=== PATIENT | male | born 1950 | race Caucasian/White ===

== ENCOUNTER 2016-04-17 16:32 | Emergency (ER) | payer OTHER ==
[~2016-04-17] VITALS: Ht 170.2 cm; Wt 72.6 kg
[2016-04-17 16:40] VITALS: BP 138/78
[2016-04-17] MEDS ORDERED: KETOROLAC TROMETHAMINE INJ 30 MG/ML VIAL ONE (17:17)
[2016-04-17] MEDS ORDERED: KETOROLAC TROMETHAMINE INJ 60 MG/2 ML VIAL IM ONE (17:30)
== END 2016-04-17 18:58 | disposition home or self-care (01) ==
LOC: ER 16:34
DX: J04.0 Acute laryngitis (principal); I10 Essential (primary) hypertension; G89.29 Other chronic pain; M54.5 Low back pain; Z59.0 Homelessness
CPT/HCPCS: 99283; A4606; Z7610; J1885

== ENCOUNTER 2016-04-18 00:24 | Emergency (ER) | payer OTHER ==
[~2016-04-18] VITALS: Ht 170.2 cm; Wt 72.6 kg
[2016-04-18 00:30] VITALS: BP 132/75
[2016-04-18] MEDS ORDERED: LORAZEPAM 1 MG TABLET PO ONE (01:00)
[2016-04-18] MEDS ORDERED: HYDROCODONE/APAP 10/325MG 1 EA TABLET PO ONE (01:00)
[2016-04-18] MEDS ORDERED: HYDROCODONE/APAP 5/325MG 1 EACH TABLET ONE (01:09)
[2016-04-18] MEDS ORDERED: LORAZEPAM 1 MG TABLET ONE (01:09)
== END 2016-04-18 01:36 | disposition home or self-care (01) ==
LOC: ER 00:27
DX: F41.9 Anxiety disorder, unspecified (principal); F15.10 Other stimulant abuse, uncomplicated; G89.4 Chronic pain syndrome; M54.5 Low back pain; I25.2 Old myocardial infarction; I10 Essential (primary) hypertension; Z59.0 Homelessness; Z88.8 Allergy status to other drugs, medicaments and biological substances
CPT/HCPCS: 99284; A4606; Z7610

== ENCOUNTER 2016-05-09 10:34 | Emergency (ER) | payer OTHER ==
[~2016-05-09] VITALS: Ht 167.6 cm; Wt 68.0 kg
[2016-05-09 10:42] VITALS: BP 138/109
[2016-05-09] MEDS ORDERED: LORAZEPAM 1 MG TABLET ONE (11:20)
[2016-05-09] MEDS ORDERED: LORAZEPAM 1 MG TABLET PO ONE (11:30)
== END 2016-05-09 12:37 | disposition home or self-care (01) ==
LOC: ER 10:36
DX: F15.10 Other stimulant abuse, uncomplicated (principal); F19.939 Other psychoactive substance use, unspecified with withdrawal, unspecified; I10 Essential (primary) hypertension; F41.9 Anxiety disorder, unspecified; M54.30 Sciatica, unspecified side; F10.10 Alcohol abuse, uncomplicated; B19.20 Unspecified viral hepatitis C without hepatic coma; Z88.8 Allergy status to other drugs, medicaments and biological substances
CPT/HCPCS: A4606; Z7610

== ENCOUNTER 2016-05-10 11:07 | Emergency (ER) | payer OTHER ==
[~2016-05-10] VITALS: Ht 170.2 cm; Wt 68.0 kg
[2016-05-10 11:46] VITALS: BP 156/98
== END 2016-05-10 12:09 | disposition home or self-care (01) ==
LOC: ER 11:16
DX: F41.9 Anxiety disorder, unspecified (principal); Z76.5 Malingerer [conscious simulation]; I10 Essential (primary) hypertension; B19.20 Unspecified viral hepatitis C without hepatic coma; Z88.8 Allergy status to other drugs, medicaments and biological substances; Z88.5 Allergy status to narcotic agent
CPT/HCPCS: 99281; A4606; Z7610; Z7502

== ENCOUNTER 2016-05-16 05:55 | Emergency (ER) | payer OTHER ==
[~2016-05-16] VITALS: Ht 162.6 cm; Wt 63.5 kg
[2016-05-16 06:25] VITALS: BP 138/79
[2016-05-16] MEDS ORDERED: ACETAMINOPHEN 325 MG TABLET ONE (06:40)
[2016-05-16] MEDS: ACETAMINOPHEN 325 MG TABLET PO ONE (06:46)
== END 2016-05-16 06:48 | disposition home or self-care (01) ==
LOC: ER 05:55
DX: G89.29 Other chronic pain (principal); F19.10 Other psychoactive substance abuse, uncomplicated; Z76.5 Malingerer [conscious simulation]; I10 Essential (primary) hypertension; Z88.8 Allergy status to other drugs, medicaments and biological substances; F10.20 Alcohol dependence, uncomplicated
CPT/HCPCS: 99281; A4606; Z7610; Z7502

== ENCOUNTER 2016-07-11 20:17 | Emergency (ER) | payer OTHER ==
[~2016-07-11] VITALS: Ht 170.2 cm; Wt 72.6 kg
[2016-07-11 20:41] VITALS: BP 137/81
== END 2016-07-11 22:39 | disposition left against medical advice (07) ==
LOC: ER 20:24
DX: Z53.21 Procedure and treatment not carried out due to patient leaving prior to being seen by health care provider (principal)
CPT/HCPCS: A4606; Z7610

== ENCOUNTER 2016-07-20 22:40 | Emergency (ER) | payer OTHER ==
[~2016-07-20] VITALS: Ht 170.2 cm; Wt 63.5 kg
--- NOTE | 2016-07-20 22:47 | NUR ---
PT BIBRA TO ER BED 14. APPEARS ANXIOUS, C/O SOB. PT HYPERVERBAL. STATES TOOK METH 5 DAYS AGO. GOWNED AND PLACED ON MONITOR SHOWING STABLE VITALS. AWAITING MD BELL.
--- NOTE | 2016-07-20 22:49 | NUR ---
DR MYLES AT BEDSIDE FOR EVAL.
--- NOTE | 2016-07-20 23:10 | NUR ---
REPORT TO CHARGE NURSE TRACY FOR EMERITA.
[2016-07-20 23:59] VITALS: BP 143/63
--- NOTE | 2016-07-21 00:01 | NUR ---
Patient discharged to home in stable condition. Written and verbal after care instructions given. Patient REFUSED TO SIGN ALL ACI AND REFUSED TO TAKE THE ACI PAPERWORK.
== END 2016-07-20 23:55 | disposition home or self-care (01) ==
LOC: ER 22:41
DX: F41.9 Anxiety disorder, unspecified (principal); I10 Essential (primary) hypertension; Z88.5 Allergy status to narcotic agent; Z88.8 Allergy status to other drugs, medicaments and biological substances; F10.20 Alcohol dependence, uncomplicated
CPT/HCPCS: 93005; 99284; A4606; Z7610

== ENCOUNTER 2016-08-17 21:31 | Emergency (ER) | payer OTHER ==
[~2016-08-17] VITALS: Ht 170.2 cm; Wt 65.8 kg
--- NOTE | 2016-08-17 22:50 | NUR ---
PT TO ER BED 11. C/O WIDRAWL FROM METH AND ALCOHOL. STATES LAST DRINK WAS THIS MORNING. STATES LAST TOOK METH 3 DAYS AGO. PT APPEARS ANXIOUS. AWAITING MD BELL.
--- NOTE | 2016-08-17 23:08 | NUR ---
DR FRANCIS AT BEDSIDE FOR EVAL.
--- NOTE | 2016-08-17 23:39 | NUR ---
Patient discharged to home in stable condition. Written and verbal after care instructions given. Patient verbalizes understanding of instruction.
[2016-08-17 23:40] VITALS: BP 124/66
== END 2016-08-17 23:41 | disposition home or self-care (01) ==
LOC: ER 21:39
DX: F19.10 Other psychoactive substance abuse, uncomplicated (principal); F41.9 Anxiety disorder, unspecified; I10 Essential (primary) hypertension; B19.20 Unspecified viral hepatitis C without hepatic coma; M54.30 Sciatica, unspecified side; Z88.8 Allergy status to other drugs, medicaments and biological substances
CPT/HCPCS: A4606; Z7610

== ENCOUNTER 2019-05-08 08:56 | Inpatient (IN) | payer MEDICARE, OTHER ==
[~2019-05-08] VITALS: Ht 167.6 cm; Wt 78.9 kg
--- NOTE | 2019-05-08 09:08 | NUR ---
CATHLEEN RA860 "took Meth now feeling heart fast", TO ER BED 11, HOOKED TO SALES TEAM MEMBER, CHANGED TO HOSP GOWN, PROVIDED W WARM BLANKET, AWAITING MD BELL
--- NOTE | 2019-05-08 09:55 | NUR ---
DR SALCIDO AT BEDSIDE
[2019-05-08] MEDS ORDERED: LORAZEPAM INJ 2 MG/ML VIAL IV ONE ×3 (10:00→18:00)
[2019-05-08] MEDS ORDERED: LORAZEPAM INJ 2 MG/ML VIAL ONE ×2 (10:03→12:07)
[2019-05-08 10:24] LABS: BASOPHILS # (AUTO) 0.1 /CMM (0.0-0.2); BASOPHILS % (AUTO) 0.6 % (0.0-2.0); EOSINOPHILS % (AUTO) 0.3 % (0.0-6.0); HEMATOCRIT 47 % (39-51); HEMOGLOBIN 16.1 g/dL (13.5-17.5); LYMPHOCYTES # (AUTO) 1.9 /CMM (0.8-4.8); LYMPHOCYTES % (AUTO) 14.4 % (20.0-44.0); MEAN CORPUSCULAR HGB CONC 34 g/dl (31.0-36.0); MEAN CORPUSCULAR VOLUME 96 fL (80-96); MONOCYTES # (AUTO) 1.5 /CMM (0.1-1.30); MONOCYTES % (AUTO) 11.6 % (2.0-12.0); NEUTROPHILS # (AUTO) 9.4 /CMM (1.8-8.9); NEUTROPHILS % (AUTO) 73.1 % (43.0-81.0); PLATELET COUNT (AUTO) 362 /CMM (150-450); RED BLOOD CELL COUNT(AUTO) 4.93 MIL/uL (4.5-6.0); WHITE BLOOD COUNT (AUTO) 12.9 K/uL (4.3-11.0)
[2019-05-08 10:36] LABS: CALCIUM, SERUM 9.6 mg/dL (8.5-10.1); CREATININE 0.8 mg/dL (0.6-1.3)
[2019-05-08 10:42] LABS: ALBUMIN 4.3 g/dL (3.4-5.0); BILIRUBIN,DIRECT 0.1 mg/dL (0.0-0.2); BILIRUBIN,TOTAL 0.7 mg/dL (0.2-1.0); TOTAL PROTEIN, SERUM 8.3 g/dL (6.4-8.2)
[2019-05-08] MEDS ORDERED: ASPIRIN 325 MG TABLET PO ONE (11:00)
[2019-05-08] MEDS ORDERED: ASPIRIN 325 MG TABLET ONE (11:17)
[2019-05-08] MEDS ORDERED: GABA-536 PO (11:21)
[2019-05-08] MEDS ORDERED: AMIT50TA17 PO (11:21)
[2019-05-08] MEDS ORDERED: LISI-603 PO (11:21)
--- NOTE | 2019-05-08 11:26 | NUR ---
RESTING COMFORTABLY. VSS.
--- NOTE | 2019-05-08 11:46 | NUR ---
PT DENIES ANY CP, SOB, AND PAIN. VSS. WATCHING TV.
--- NOTE | 2019-05-08 12:08 | NUR ---
DALLIN JUAN, WAITING FOR CALL BACK.
--- NOTE | 2019-05-08 12:09 | NUR ---
NURSING SUP NOTIFIED FOR BED.
--- NOTE | 2019-05-08 12:22 | NUR ---
MD JOSE RAMON TURNER.
--- NOTE | 2019-05-08 12:30 | NUR ---
REPORT GIVEN TO JULIETH LOPEZ
--- NOTE | 2019-05-08 13:01 | NUR ---
PT TRANSFERED PER ACLS PROTOCOL
[2019-05-08] MEDS ORDERED: MAGNESIUM HYDROXIDE 30 ML UDC PO PRN (15:00)
[2019-05-08] MEDS ORDERED: HYDROCODONE/APAP 5/325MG 1 EACH TABLET PO PRN (15:00)
[2019-05-08] MEDS ORDERED: ACETAMINOPHEN 325 MG TABLET PO PRN (15:00)
[2019-05-08] MEDS ORDERED: ZOLPIDEM TARTRATE 5 MG TABLET PO PRN (15:00)
[2019-05-08] MEDS ORDERED: ONDANSETRON HCL/PF 4 MG/2 ML VIAL IVP PRN (15:00)
[2019-05-08 16:00] VITALS: BP 125/82
[2019-05-08] MEDS ORDERED: ENOXAPARIN SODIUM 40 MG/0.4 ML DISP.SYRIN SQ SCH (17:00)
--- NOTE | 2019-05-08 17:51 | NUR ---
TELE/RN NOTE THE PATIENT VERBALIZED BEING ANXIOUS. MICHAEL CAMILO IS MADE AWARE AND NEW ORDER OF ATIVAN 1 MG IV PUSH ONCE PRN IS RECEIVED. THE ORDER IS READ BACK, VERIFIED. NOTED AND CARRIED OUT.
[2019-05-08] MEDS ORDERED: LORAZEPAM 1 MG TABLET PO PRN (18:00)
--- NOTE | 2019-05-08 18:31 | NUR ---
TELE/RN NOTE THE PATIENT IS ALERT AND ORIENTED X4. IN ROOM AIR AND SATURATION IS AT 97%. DENIES SOB. RESPIRATION REGULAR AND UNLABORED. DENIES PAIN. THE PATIENT IS IN NO APPARENT DISTRESS. RIGHT HAND G 22 PATENT AND SALINE LOCKED. EXTERNAL TELE BOX READING IS SINUS TACHYCARDIA 114. BED LOW AND LOCKED. SIDE RAILS UP X33. CALL LIGHT WITHIN REACH. WILL ENDORSE TO INGOT SUPERVISOR.
--- NOTE | 2019-05-08 19:20 | NUR ---
RECEIVED PATIENT IN BED, AWAKE, A/O X4. NO COMPLAIN OF PAIN. NOT IN RESPIRATORY DISTRESS. WENT TO THE BATHROOM, STEADY GAIT. REMINDED OF URINE COLLECTION. CONTAINER GIVEN. UNABLE TO COLLECT IT.
[2019-05-08 20:00] VITALS: BP 130/87
[2019-05-08] MEDS ORDERED: ATORVASTATIN 10 MG TABLET PO SCH (22:00)
[2019-05-08 23:41] VITALS: BP 138/83
[2019-05-08] MEDS: METOPROLOL TARTRATE 50 MG TABLET PO SCH (23:42)
[2019-05-09] VITALS: BP 138/83
--- NOTE | 2019-05-09 01:08 | NUR ---
PATIENT REMOVED THE TELE MONITOR AND HIS IV. REFUSED TO BE CONNECTED TO THE MONITOR. REMOVED ALSO HIS CLOTHINGS.
[2019-05-09 04:00] VITALS: BP 130/74
[2019-05-09 04:44] VITALS: BP 130/74
[2019-05-09] MEDS: METOPROLOL TARTRATE 50 MG TABLET PO SCH (04:53)
--- NOTE | 2019-05-09 06:35 | NUR ---
PATIENT REMOVED THE TELE MONITOR LEADS AGAIN.
--- NOTE | 2019-05-09 06:37 | NUR ---
INSTRUCTED NPO RIGHT NOW,VERBALIZED UNDERSTANDING.
--- NOTE | 2019-05-09 07:48 | NUR ---
BROOMMAKER OPENING NOTES PATIENT IN BED RESTING COMFORTABLY. PATIENT IN NO ACUTE DISTRESS. NO SOB NOTED. PATIENT BREATHING IS EVEN AND UNLABORED. PATIENT WITH REMOVED IV ACCESS. NO ACCESS AT THIS TIME. PATIENT NONCOMPLIANT WITH CARDIAC MONITORING. PATIENT BED IS LOCKED AND IN LOWEST POSITION. CALL LIGHT WITHIN REACH. WILL CONTINUE TO MONITOR.
[2019-05-09 07:51] LABS: BASOPHILS # (AUTO) 0.1 /CMM (0.0-0.2); BASOPHILS % (AUTO) 0.5 % (0.0-2.0); EOSINOPHILS % (AUTO) 0.7 % (0.0-6.0); HEMATOCRIT 51 % (39-51); HEMOGLOBIN 17.2 g/dL (13.5-17.5); LYMPHOCYTES # (AUTO) 2.2 /CMM (0.8-4.8); LYMPHOCYTES % (AUTO) 15.7 % (20.0-44.0); MEAN CORPUSCULAR HGB CONC 34 g/dl (31.0-36.0); MEAN CORPUSCULAR VOLUME 96 fL (80-96); MONOCYTES # (AUTO) 1.4 /CMM (0.1-1.30); MONOCYTES % (AUTO) 10.3 % (2.0-12.0); NEUTROPHILS # (AUTO) 10.2 /CMM (1.8-8.9); NEUTROPHILS % (AUTO) 72.8 % (43.0-81.0); PLATELET COUNT (AUTO) 402 /CMM (150-450); RED BLOOD CELL COUNT(AUTO) 5.34 MIL/uL (4.5-6.0)
[2019-05-09 07:53] LABS: CALCIUM, SERUM 9.9 mg/dL (8.5-10.1); CREATININE 1.1 mg/dL (0.6-1.3); MAGNESIUM 2.3 mg/dL (1.8-2.4); PHOSPHORUS 3.2 mg/dL (2.5-4.9); POTASSIUM 4.1 mmol/L (3.5-5.1)
[2019-05-09 08:00] VITALS: BP 129/81
--- NOTE | 2019-05-09 08:59 | NUR ---
DIRT BIKE RACER NOTE PATIENT SIGNED CTA CONSENT. THEN REFUSED TO HAVE CTA PERFORMED. DR. CALDERON MADE AWARE.
[2019-05-09] MEDS ORDERED: ASPIRIN 81 MG TAB.CHEW PO SCH (09:00)
--- NOTE | 2019-05-09 09:00 | NUR ---
DRAWER IN JACQUARD LOOM AMA NOTE PATIENT REFUSING TO STAY FOR CTA OF HEART. PATIENT STATES " I CAN NOT WAIT ANYMORE, I WANT TO LEAVE THIS HOSPITAL NOW." PATIENT IS EDUCATED RISKS AND BENEFITS OF CTA AND IMPORTANCE OF STAYING 3X. PATIENT GOT AGITATED AND REFUSED. DR. CALDERON MADE AWARE AND SPOKE WITH PATIENT. PATIENT CONTINUES TO REFUSE AND WANTS TO LEAVE HOSPITAL AMA. BASIL CAMILO MADE AWARE AND EDUCATED PATIENT OF IMPORTANCE TO STAY FOR HOSPITALIZATION WELL. PATIENT CONTINUED TO REFUSE. PATIENT REFUSED DC PAPERWORK. PATIENT HAS NO IV. ID BAND REMOVED. PATIENT REFUSED TO HAVE SKIN ASSESSMENT. PATIENT SIGNED AMA SHEET AND BELONGINGS LIST. PATIENT ACKNOWLEDGES AND HAS BELONGINGS WITH HIM. PATIENT IN NO ACUTE DISTRESS. NO SOB NOTED. PATIENT BREATHING IS EVEN AND UNLABORED. CHARGE NURSE MADE AWARE, BASIL TOMAS, AND DR. CALDERON MADE AWARE.
== END 2019-05-09 09:00 | disposition left against medical advice (07) | DRG 282 ==
LOC: ER 09:03 → TELE 12:37
PROVIDERS: ADMIT Nurse Practitioner Acute Care; ATTEND Nurse Practitioner Acute Care
DX: I21.A1 Myocardial infarction type 2 (principal); F15.10 Other stimulant abuse, uncomplicated; F41.9 Anxiety disorder, unspecified; D72.829 Elevated white blood cell count, unspecified; I10 Essential (primary) hypertension; Z59.0 Homelessness
CPT/HCPCS: 36415; 71045-TC; 80048-TC; 80061-TC; 80076-TC; 83735-TC; 84100-TC; 84484-TC; 85025-TC; 87081-TC; 93307-TC; G0378; J1650; J2060

== ENCOUNTER 2019-05-10 08:12 | Emergency (ER) | payer MEDICARE, OTHER ==
[~2019-05-10] VITALS: Ht 167.6 cm; Wt 63.5 kg
[~2019-05-10 08:12] MED LIST: AMIT50TA17 PO; GABA-536 PO; LISI-603 PO
[2019-05-10] MEDS ORDERED: LORAZEPAM 1 MG TABLET PO ONE (09:00)
[2019-05-10] MEDS ORDERED: LORAZEPAM 1 MG TABLET ONE (09:01)
--- NOTE | 2019-05-10 09:07 | NUR ---
patient came in to the ER c/o anxious, had meth yesterday, denies SI/HI. On room air, breathing evenly and unlabored, kept comfortable,will continue to monitor accordingly.
--- NOTE | 2019-05-10 09:42 | NUR ---
Provided with food tray. Tolerated PO well.
--- NOTE | 2019-05-10 10:36 | NUR ---
Patient given written and verbal discharge instructions. Patient verbalizes understanding of instructions. Patient is ambulatory with steady gait. Refuses offer of nursing home placement. Patient given list of available shelters in surrounding area. Provided w pants. Name band removed. all belongings returned to patient.
[2019-05-10 11:00] VITALS: BP 110/77
== END 2019-05-10 11:00 | disposition home or self-care (01) ==
LOC: ER 08:16
DX: F41.9 Anxiety disorder, unspecified (principal); F19.10 Other psychoactive substance abuse, uncomplicated; I10 Essential (primary) hypertension; F10.10 Alcohol abuse, uncomplicated; Y90.9 Presence of alcohol in blood, level not specified; Z86.19 Personal history of other infectious and parasitic diseases; Z79.899 Other long term (current) drug therapy; Z88.8 Allergy status to other drugs, medicaments and biological substances; Z88.6 Allergy status to analgesic agent; Z59.0 Homelessness

== ENCOUNTER 2019-05-12 11:06 | Emergency (ER) | payer MEDICARE, OTHER ==
[~2019-05-12] VITALS: Ht 167.6 cm; Wt 72.1 kg
[2019-05-12] MEDS ORDERED: ONDANSETRON HCL/PF 4 MG/2 ML VIAL ONE (11:41)
[2019-05-12] MEDS ORDERED: LORAZEPAM INJ 2 MG/ML VIAL ONE (11:42)
[2019-05-12 11:52] LABS: BASOPHILS % (AUTO) 0.4 % (0.0-2.0); EOSINOPHILS % (AUTO) 1.4 % (0.0-6.0); HEMATOCRIT 42 % (39-51); HEMOGLOBIN 14.4 g/dL (13.5-17.5); LYMPHOCYTES # (AUTO) 2.1 /CMM (0.8-4.8); LYMPHOCYTES % (AUTO) 18.6 % (20.0-44.0); MEAN CORPUSCULAR HGB CONC 34 g/dl (31.0-36.0); MEAN CORPUSCULAR VOLUME 95 fL (80-96); MONOCYTES # (AUTO) 1.4 /CMM (0.1-1.30); MONOCYTES % (AUTO) 12.7 % (2.0-12.0); NEUTROPHILS # (AUTO) 7.4 /CMM (1.8-8.9); NEUTROPHILS % (AUTO) 66.9 % (43.0-81.0); PLATELET COUNT (AUTO) 382 /CMM (150-450); WHITE BLOOD COUNT (AUTO) 11.1 K/uL (4.3-11.0)
--- NOTE | 2019-05-12 11:53 | NUR ---
patient came in to the er c/o chest pressure, sob since this morning. admits to ingesting "crystal meth" meth last night. On room air, breathing evenly and unlabored. connected to the monitor and pulse ox. kept comfortable, will continue to monitor accordingly.
[2019-05-12 12:00] LABS: CALCIUM, SERUM 9.4 mg/dL (8.5-10.1); CARBON DIOXIDE 23 mmol/L (21-32); CHLORIDE 100 mmol/L (98-107); CREATININE 0.9 mg/dL (0.6-1.3); GLUCOSE 107 mg/dL (74-106); POTASSIUM 3.6 mmol/L (3.5-5.1); SODIUM SERUM 136 mmol/L (136-145); UREA NITROGEN, BLOOD 26 mg/dL (7-18)
[2019-05-12] MEDS ORDERED: LORAZEPAM INJ 2 MG/ML VIAL IV ONE (12:00)
[2019-05-12] MEDS ORDERED: IV NS 0.9% 1,000 ML BAG IV ONE (12:00)
[2019-05-12] MEDS ORDERED: ONDANSETRON HCL/PF 4 MG/2 ML VIAL IVP ONE (12:00)
[2019-05-12 14:43] VITALS: BP 128/81
--- NOTE | 2019-05-12 14:43 | NUR ---
Patient given written and verbal discharge instructions. Patient verbalizes understanding of instructions. Patient is ambulatory with steady gait. Refuses offer of detention placement. Patient given list of available shelters in surrounding area. food and tap card provided.
== END 2019-05-12 14:43 | disposition home or self-care (01) ==
LOC: ER 11:06
DX: F15.129 Other stimulant abuse with intoxication, unspecified (principal); F15.10 Other stimulant abuse, uncomplicated; E86.0 Dehydration; I10 Essential (primary) hypertension; F41.9 Anxiety disorder, unspecified; Z88.8 Allergy status to other drugs, medicaments and biological substances; Z79.899 Other long term (current) drug therapy
CPT/HCPCS: 36415; 80048; 84484; 85025; 93005 ×3; 96361; 96374; 96375; 99284; J2060; J2405; J7030

== ENCOUNTER 2020-08-24 17:31 | Emergency (ER) | payer MEDICARE, MEDICAID ==
[~2020-08-24] VITALS: Ht 170.2 cm; Wt 75.7 kg
[~2020-08-24 17:31] MED LIST changes: -LISI-603 PO; +LISI20TA30 PO
--- NOTE | 2020-08-24 17:48 | NUR ---
pt ambulatory to er bed 14 c/o diffuse abdominal pain that started at noon today. denies n/v/d pt admits to meth use earlier this morning. but denies etoh. pt denies si/hi. hypertensive social services aide. awaiting md carlin.
--- NOTE | 2020-08-24 17:50 | NUR ---
The patient is bib for c/o diffuse abdominal pain x today. denies n/v/d. admits to meth use this am. Rates pain 09/22. Denies SOB. Respiration regular and unlabored. Will continue to monitor the patient.
--- NOTE | 2020-08-24 17:58 | NUR ---
dr sethi at bedside for eval.
[2020-08-24 18:18] LABS: BASOPHILS # (AUTO) 0.1 /CMM (0.0-0.2); BASOPHILS % (AUTO) 0.6 % (0.0-2.0); EOSINOPHILS % (AUTO) 0.4 % (0.0-6.0); HEMATOCRIT 44 % (39-51); HEMOGLOBIN 14.8 g/dL (13.5-17.5); LYMPHOCYTES # (AUTO) 2.1 /CMM (0.8-4.8); LYMPHOCYTES % (AUTO) 19.3 % (20.0-44.0); MEAN CORPUSCULAR HGB CONC 34 g/dl (31.0-36.0); MEAN CORPUSCULAR VOLUME 99 fL (80-96); MONOCYTES # (AUTO) 1.2 /CMM (0.1-1.30); NEUTROPHILS # (AUTO) 7.5 /CMM (1.8-8.9); NEUTROPHILS % (AUTO) 68.7 % (43.0-81.0); PLATELET COUNT (AUTO) 331 /CMM (150-450); RED BLOOD CELL COUNT(AUTO) 4.42 MIL/uL (4.5-6.0); WHITE BLOOD COUNT (AUTO) 10.9 K/uL (4.3-11.0)
[2020-08-24] MEDS ORDERED: LORAZEPAM 1 MG TABLET ONE (18:23)
[2020-08-24 18:26] LABS: CALCIUM, SERUM 9.6 mg/dL (8.5-10.1); CREATININE 0.9 mg/dL (0.6-1.3)
[2020-08-24 18:27] LABS: ALCOHOL, BLOOD < 3 mg/dL (0-0); MAGNESIUM 2.2 mg/dL (1.8-2.4)
[2020-08-24] MEDS ORDERED: LORAZEPAM 1 MG TABLET PO ONE (18:30)
[2020-08-24 18:32] LABS: ALBUMIN 4.4 g/dL (3.4-5.0); BILIRUBIN,DIRECT 0.2 mg/dL (0.0-0.2); BILIRUBIN,TOTAL 0.8 mg/dL (0.2-1.0); TOTAL PROTEIN, SERUM 8.2 g/dL (6.4-8.2)
[2020-08-24 18:34] LABS: BILIRUBIN,URINE SMALL (NEGATIVE); COLOR,URINE DARK YELLOW (YELLOW); LEUKOCYTE ESTERASE ,URINE Negative (NEGATIVE); NITRITE, URINE Negative (NEGATIVE); PROTEIN,URINE 100 mg/dl (NEGATIVE); UGLUCOSE Negative (NEGATIVE); UROBILINOGEN,URINE 0.2 EU/dL (0.2)
[2020-08-24 18:59] LABS: BACTERIA,URINE Few /HPF (None Seen); SQUAMOUS EPITHELIAL CELL,UR Few /HPF (None Seen)
--- NOTE | 2020-08-24 19:54 | NUR ---
pt is medically stable for d/c. Patient given written and verbal discharge instructions. Patient verbalizes understanding of instructions. Patient is ambulatory with steady gait. Refuses offer of group home placement. pt had [roperclothing on upon d/c.
[2020-08-24 20:08] VITALS: BP 155/89
== END 2020-08-24 20:08 | disposition home or self-care (01) ==
LOC: ER 17:31
DX: F15.10 Other stimulant abuse, uncomplicated (principal); I10 Essential (primary) hypertension; F41.9 Anxiety disorder, unspecified; F10.10 Alcohol abuse, uncomplicated; Y90.0 Blood alcohol level of less than 20 mg/100 ml; Z86.19 Personal history of other infectious and parasitic diseases; Z98.890 Other specified postprocedural states; Z90.81 Acquired absence of spleen; Z88.8 Allergy status to other drugs, medicaments and biological substances; Z88.6 Allergy status to analgesic agent; Z79.899 Other long term (current) drug therapy
CPT/HCPCS: 36415; 80048-TC; 80076-TC; 81001; 83690-TC; 83735-TC; 85025-TC; G0480

== ENCOUNTER 2020-08-25 04:01 | Inpatient (IN) | payer MEDICARE, OTHER ==
[~2020-08-25] VITALS: Ht 167.6 cm; Wt 74.8 kg
--- NOTE | 2020-08-25 04:05 | NUR ---
SHAD FROM STREET, SEEN AT [facility], STILL FEELS ANXIOUS S/P METH USE FEW DAYS AGO. BEEN "CLEAN" FOR FEW MONTHS AND RELAPSED, BREATHING EVEN AND UNLABORED DENIES SI AND HI WILL CONT TO MONITOR
--- NOTE | 2020-08-25 04:11 | NUR ---
ABIEL FROM [place] FOR C/O ANXIETY. PT WAS SEEN AT [facility] ER EARLIER TODAY. DENIED CP, H/A.PT WAS PLACED IN BED 14 ER ON MONITOR, VSS. WILL CONT TO MONITOR
--- NOTE | 2020-08-25 04:20 | NUR ---
DR BARBOZA AT BEDSIDE WITH ORDERS MADE AND CARRIED OUT
[2020-08-25] MEDS ORDERED: ONDANSETRON HCL/PF 4 MG/2 ML VIAL ONE (04:22)
[2020-08-25] MEDS ORDERED: LORAZEPAM INJ 2 MG/ML VIAL ONE (04:23)
[2020-08-25] MEDS ORDERED: ONDANSETRON HCL/PF 4 MG/2 ML VIAL IVP ONE (04:30)
[2020-08-25] MEDS ORDERED: LORAZEPAM INJ 2 MG/ML VIAL IV ONE (04:30)
[2020-08-25] MEDS ORDERED: IV NS 0.9% 1,000 ML BAG IV ONE (04:30)
[2020-08-25 04:34] LABS: BASOPHILS # (AUTO) 0.1 /CMM (0.0-0.2); BASOPHILS % (AUTO) 1.2 % (0.0-2.0); EOSINOPHILS % (AUTO) 1.6 % (0.0-6.0); HEMATOCRIT 44 % (39-51); HEMOGLOBIN 14.9 g/dL (13.5-17.5); LYMPHOCYTES % (AUTO) 24.2 % (20.0-44.0); MEAN CORPUSCULAR HGB CONC 34 g/dl (31.0-36.0); MEAN CORPUSCULAR VOLUME 98 fL (80-96); MONOCYTES # (AUTO) 1.1 /CMM (0.1-1.30); MONOCYTES % (AUTO) 13.3 % (2.0-12.0); NEUTROPHILS # (AUTO) 4.9 /CMM (1.8-8.9); NEUTROPHILS % (AUTO) 59.7 % (43.0-81.0); PLATELET COUNT (AUTO) 317 /CMM (150-450); WHITE BLOOD COUNT (AUTO) 8.2 K/uL (4.3-11.0)
[2020-08-25 04:46] LABS: CALCIUM, SERUM 9.4 mg/dL (8.5-10.1); CREATININE 0.9 mg/dL (0.6-1.3); POTASSIUM 4.2 mmol/L (3.5-5.1)
[2020-08-25 04:50] LABS: ACETAMINOPHEN 0 ug/ml (10-30); ALCOHOL, BLOOD < 3 mg/dL (0-0)
[2020-08-25 04:52] LABS: ALBUMIN 3.9 g/dL (3.4-5.0); BILIRUBIN,DIRECT 0.2 mg/dL (0.0-0.2); BILIRUBIN,TOTAL 0.9 mg/dL (0.2-1.0); TOTAL PROTEIN, SERUM 7.5 g/dL (6.4-8.2)
[2020-08-25] MEDS ORDERED: NITROGLYCERIN PACKET 1 GM PACKET ONE (05:34)
[2020-08-25] MEDS ORDERED: ASPIRIN 81 MG TAB.CHEW ONE (05:34)
[2020-08-25] MEDS ORDERED: NITROGLYCERIN PACKET 1 GM PACKET TD ONE (06:00)
[2020-08-25] MEDS ORDERED: ASPIRIN 81 MG TAB.CHEW PO ONE (06:00)
--- NOTE | 2020-08-25 06:23 | NUR ---
CALL 3W TO GIVE REPORT NURSE STILL NOT AVAILABLE WILL TRY AGAIN LATER
[2020-08-25] MEDS ORDERED: HYDROCODONE/APAP 5/325MG TABLET PO PRN (06:30)
[2020-08-25] MEDS ORDERED: ACETAMINOPHEN 325 MG TABLET PO PRN (06:30)
[2020-08-25] MEDS ORDERED: ONDANSETRON HCL/PF 4 MG/2 ML VIAL IVP PRN (06:30)
[2020-08-25] MEDS ORDERED: MAGNESIUM HYDROXIDE 30 ML UDC PO PRN (06:30)
[2020-08-25] MEDS ORDERED: Z GUARD REMEDY 2 OZ OINT TP PRN (06:30)
[2020-08-25] MEDS ORDERED: ZOLPIDEM TARTRATE 5 MG TABLET PO PRN (06:30)
--- NOTE | 2020-08-25 06:47 | NUR ---
REPORT GIVEN TO IDANIA FOR EMERITA.
--- NOTE | 2020-08-25 07:05 | NUR ---
PT WAS TRANSFERRED TO 312 UNDER ACLS.
--- NOTE | 2020-08-25 07:15 | NUR ---
MS SENIOR PROJECT ACCOUNTANT NOTE RECEIVED PATIENT FROM ER. PATIENT C/O ANXIETY DUE TO RECENT METH USE A FEW DAYS. PATIENT IS CURRENTLY STABLE. TELE MONITOR READS SINUS TACHY 100-115. A/O X4. ON ROOM AIR - TOLERATING WELL. NO PAIN NOTED. NO DISTRESS NOTED. PATIENT IS AMBULATORY. STATES HE IS HOMELESS, BUT HAS FAMILY HE TALKS TO FREQUENTLY. SKIN INTACT. IV ACCESS TO RIGHT HAND #20 - INTACT AND PATENT, NO FLUIDS RUNNING. SAFETY PRECAUTIONS IN PLACE. CALL LIGHT WITHIN REACH. WILL CONTINUE TO MONITOR.
[2020-08-25 08:00] VITALS: BP 120/72
[2020-08-25] MEDS: ASPIRIN 81 MG TAB.CHEW PO SCH (09:25)
[2020-08-25] MEDS: ENOXAPARIN SODIUM 40 MG/0.4 ML DISP.SYRIN SQ SCH (09:27)
[2020-08-25] MEDS: GABAPENTIN 400 MG CAPSULE PO SCH ×2 (12:36→16:28)
[2020-08-25 16:00] VITALS: BP 153/99
--- NOTE | 2020-08-25 18:56 | NUR ---
MS RN CLOSING NOTE PATIENT CURRENTLY LYING IN BED, AWAKE, WATCHING TV. A/O X4. TELE MONITOR READS SINUS TACHY 101. ON ROOM AIR - TOLERATING WELL. NO PAIN NOTED. NO DISTRESS NOTED. PATIENT IS AMBULATORY. IV ACCESS TO RIGHT HAND #20 - INTACT AND PATENT, NO FLUIDS RUNNING. SAFETY PRECAUTIONS IN PLACE. CALL LIGHT WITHIN REACH. WILL ENDORSE TO HAND I THERMAL CUTTER FOR EMERITA.
[2020-08-25 20:00] VITALS: BP 167/101
[2020-08-25] MEDS ORDERED: AMITRIPTYLINE HCL 25 MG TABLET PO SCH (22:00)
[2020-08-26] VITALS: BP 143/83
[2020-08-26 04:00] VITALS: BP_SYST 120; BP_SYST 143; BP_DIAS 76; BP_DIAS 83
--- NOTE | 2020-08-26 05:52 | NUR ---
PARATRANSIT OPERATOR NOTES AWAKE & RESPONSIVE. NOT IN ANY DISTRESS. NO SOB NOTED. DENIES ANY PAIN OR DISCOMFORT AT THIS TIME. ON TELE SR @ 84 WITH IV-HL PATENT & INTACT. MONITORED ACCORDINGLY. CALL LIGHT WITHIN REACH. BED IN LOWEST POSITION. SR UP X2 FOR SAFETY. WILL ENDORSE TO NEXT SHIFT.
[2020-08-26 06:32] LABS: BASOPHILS # (AUTO) 0.1 /CMM (0.0-0.2); BASOPHILS % (AUTO) 1.1 % (0.0-2.0); EOSINOPHILS % (AUTO) 5.8 % (0.0-6.0); HEMATOCRIT 46 % (39-51); HEMOGLOBIN 15.3 g/dL (13.5-17.5); MEAN CORPUSCULAR HGB CONC 33 g/dl (31.0-36.0); MEAN CORPUSCULAR VOLUME 100 fL (80-96); MONOCYTES # (AUTO) 0.8 /CMM (0.1-1.30); MONOCYTES % (AUTO) 12.2 % (2.0-12.0); NEUTROPHILS # (AUTO) 2.5 /CMM (1.8-8.9); NEUTROPHILS % (AUTO) 36.9 % (43.0-81.0); PLATELET COUNT (AUTO) 300 /CMM (150-450); RED BLOOD CELL COUNT(AUTO) 4.59 MIL/uL (4.5-6.0); WHITE BLOOD COUNT (AUTO) 6.9 K/uL (4.3-11.0)
[2020-08-26 06:57] LABS: CALCIUM, SERUM 9.4 mg/dL (8.5-10.1); CREATININE 0.7 mg/dL (0.6-1.3); MAGNESIUM 2.4 mg/dL (1.8-2.4); PHOSPHORUS 3.6 mg/dL (2.5-4.9); POTASSIUM 3.9 mmol/L (3.5-5.1)
--- NOTE | 2020-08-26 07:20 | NUR ---
SENIOR ARCHITECTURAL DESIGNER NOTES PATIENT IN BED ALERT ORIENTED X 4. HEAD OF BED ELEVATED. NO ACUTE DISTRESS NOTED. BREATHING UNLABORED DENIED ANY PAIN AT THIS TIME. ON CHART SNATCHER SINUS RHYTHM. IV ACCESS PATENT AND INTACT, NO REDNESS, NO SWELLING NOTED. SAFETY MEASURES IN PLACE, CALL LIGHT WITHIN REACH. WILL CONTINUE TO MONITOR ACCORDINGLY.
--- NOTE | 2020-08-26 07:55 | NUR ---
CORPORATE SECURITY OFFICER NOTES PATIENT SEEN AND EVALUATED BY DR CARLA ZEE WITH NEW ORDER MADE FOR Ativan 1 MG TABLET PO ONCE, ORDER CLARIFIED AND AND READ BACK WITH MD, NOTED AND CARRIED OUT.
[2020-08-26 08:00] VITALS: BP 140/89
[2020-08-26] MEDS ORDERED: LORAZEPAM 1 MG TABLET PO ONE (08:00)
--- NOTE | 2020-08-26 08:33 | NUR ---
INFANTRY SENIOR SERGEANT NOTES PATIENT SEEN AND EVALUATED BY DR CARLA ZEE WITH NEW ORDER MADE, NOTED AND CARRIED OUT.
--- NOTE | 2020-08-26 08:39 | NUR ---
GLOBAL MARKETING COORDINATOR NOTES PATIENT SEEN AND EVALUATED BY DR ADRIENNE COON , NO NEW ORDER MADE AT THIS TIME
[2020-08-26 08:41] VITALS: BP 140/89
[2020-08-26] MEDS: ASPIRIN 81 MG TAB.CHEW PO SCH (08:41)
[2020-08-26] MEDS: GABAPENTIN 400 MG CAPSULE PO SCH (08:44)
[2020-08-26] MEDS: ENOXAPARIN SODIUM 40 MG/0.4 ML DISP.SYRIN SQ SCH (08:45)
--- NOTE | 2020-08-26 08:45 | NUR ---
HAT CHECKER NOTES PATIENT REFUSED LOVENOX DESPITE OF EXPLANATION OF RISKS AND BENEFITS, VERBALIZED UNDERSTANDING
[2020-08-26] MEDS ORDERED: LISINOPRIL (20MG) 20 MG TABLET PO SCH (09:00)
--- NOTE | 2020-08-26 09:20 | NUR ---
TOY PAINTER NOTES PATIENT IN BED ALERT ORIENTED X 4. HEAD OF BED ELEVATED. NO ACUTE DISTRESS NOTED. BREATHING UNLABORED DENIED ANY PAIN AT THIS TIME. ON INSECT CONTROL AIDE SINUS RHYTHM. IV ACCESS PATENT AND INTACT, NO REDNESS, NO SWELLING NOTED. SAFETY MEASURES IN PLACE, CALL LIGHT WITHIN REACH. WILL CONTINUE TO MONITOR ACCORDINGLY. Addendum: 08/26/20 at 1147 by IRVIN CHOWDARY RN DISREGARD ABOVE NOTE- ERROR
--- NOTE | 2020-08-26 09:48 | NUR ---
MACHINE BANDER AND CELLOPHANER HELPER NOTES NOTIFIED DR ROXANA ISLAS REGARDING MEDICATION RECONCILIATION NEEDS DONE MENTIONED PATIENT ON METHADONE, SAID TO PROVIDE CONFIRMATION FROM THE CLINIC TO OUR PHARMACY , CONFIRMATION PROVIDED TO PHARMACY AND SPOKE TO AKASH SAID THEY WILL DISPENSE.. Addendum: 08/26/20 at 1139 by IRVIN CHOWDARY RN DISREGARD ABOVE NOTED - ERROR
--- NOTE | 2020-08-26 11:20 | NUR ---
PLANNING ASSISTANTSTRATEGIC ALLIANCES MANAGER NOTES PATIENT DISCHARGE HOME WITH STABLE VITAL SIGNS, ALERT ORIENTED X 4. NO ACUTE DISTRESS NOTED, BREATHING UNLABORED. DENIED ANY PAIN. DISCHARGE INSTRUCTIONS GIVEN TO THE PATIENT INCLUDING FOLLOW UP WITH PRIMARY DOCTOR. IV ACCESS REMOVED, NO REDNESS, NO SWELLING, NO BLEEDING NOTED. ALL BELONGINGS ACCOUNTED FOR. SKIN IS INTACT. ASSISTED TO THE LOBBY PICKED UP VIA PRIVATE CAR ACCOMPANIED BY FRIEND IN STABLE CONDITION. PATIENT AMBULATORY WITH STEADY GAIT.
--- NOTE | 2020-08-26 11:56 | NUR ---
Social Service Consult: director financial services consult requested for homelessness. Patient is a 70-year-old, male. SW met with the patient at his hospital bed in the med-surg unit. Patient was alert and oriented x4. Patient was resting. Per patients chart, patient was brought to the hospital by ambulance on 08/25/20 for NSTEMI. Patient stated that he is currently homeless but has been staying at sober living facilities as well. Patient stated that he has planned to go to [facility] ([address] [place] [id number]; [phone]) for substance use detox on Saturday. SW assessed if patient has access to social support and patient stated that he is in regular contact with his daughter and son. Patient stated that he is independent with his ADLs and receives SSI and some income from his inheritance. 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 Patient stated that he recently used methamphetamine and alcohol but stopped 2 days ago. SW asked patient if she has a history of mental illness and patient stated that he has a history of PTSD. Patient denies hallucinations or delusions. Patient denies suicidal or homicidal ideation. SW discussed homeless and substance use resources with the patient. Patient declined the resources, stating that he can take care of himself and is able to locate resources independently. SW asked patient to sign the homeless waiver. Patient signed the homeless waiver and SW filed the waiver in the patients chart. SW discussed discharge plan with the patient and patient stated that he will return to the streets and go to [facility] on Saturday. Patient stated that he can take public transportation. PLAN: Patient stated that he will return to the streets at the time of discharge and plans to go to [facility] on Saturday for substance use detox. No further SS intervention at this time, however SW will remain available as needed.
== END 2020-08-26 11:20 | disposition home or self-care (01) | DRG 917 ==
LOC: ER 04:04 → TELE 06:15
DX: T43.621A Poisoning by amphetamines, accidental (unintentional), initial encounter (principal); I21.A1 Myocardial infarction type 2; F41.9 Anxiety disorder, unspecified; I10 Essential (primary) hypertension; M54.30 Sciatica, unspecified side; Z20.822 Contact with and (suspected) exposure to COVID-19; Y92.89 Other specified places as the place of occurrence of the external cause; F15.188 Other stimulant abuse with other stimulant-induced disorder; F10.21 Alcohol dependence, in remission; I35.1 Nonrheumatic aortic (valve) insufficiency; B19.20 Unspecified viral hepatitis C without hepatic coma
CPT/HCPCS: 36415; 71045-TC; 80048-TC; 80061-TC; 80076-TC; 81001; 83690-TC; 83735-TC; 84100-TC; 84484-TC; 85025-TC; 85730-TC; 87081-TC; 93307-TC; C9803; G0378; G0480; J1650; J2060; J2405; J7030

== ENCOUNTER 2021-07-25 10:12 | Emergency (ER) | payer MEDICARE, OTHER ==
[~2021-07-25] VITALS: Ht 162.6 cm; Wt 72.6 kg
--- NOTE | 2021-07-25 14:10 | NUR ---
TO ER 15, NO APPARENT CHANGE IN CONDITION
--- NOTE | 2021-07-25 14:12 | NUR ---
IN BED ASLEEP, HOOKED TO MONITOR. KEPT SAFE AND COMFORTABLE.
[2021-07-25 15:30] LABS: BASOPHILS % (AUTO) 0.4 % (0.0-2.0); EOSINOPHILS % (AUTO) 4.8 % (0.0-6.0); HEMATOCRIT 47 % (39-51); HEMOGLOBIN 15.6 g/dL (13.5-17.5); LYMPHOCYTES # (AUTO) 2.2 K/uL (0.8-4.8); LYMPHOCYTES % (AUTO) 25.9 % (20.0-44.0); MEAN CORPUSCULAR HGB CONC 33 g/dl (31.0-36.0); MEAN CORPUSCULAR VOLUME 99 fL (80-96); MONOCYTES # (AUTO) 1.4 K/uL (0.1-1.30); MONOCYTES % (AUTO) 16.2 % (2.0-12.0); NEUTROPHILS # (AUTO) 4.5 K/uL (1.8-8.9); NEUTROPHILS % (AUTO) 52.7 % (43.0-81.0); PLATELET COUNT (AUTO) 317 K/uL (150-450); RED BLOOD CELL COUNT(AUTO) 4.73 MIL/uL (4.5-6.0); WHITE BLOOD COUNT (AUTO) 8.6 K/uL (4.3-11.0)
[2021-07-25 15:53] LABS: CARBON DIOXIDE 25 mmol/L (21-32); CHLORIDE 98 mmol/L (98-107); CREATININE 0.7 mg/dL (0.6-1.3); GLUCOSE 108 mg/dL (74-106); POTASSIUM 3.4 mmol/L (3.5-5.1); SODIUM SERUM 136 mmol/L (136-145); UREA NITROGEN, BLOOD 18 mg/dL (7-18)
--- NOTE | 2021-07-25 15:54 | NUR ---
PT PROVIDED WITH URINAL AT BEDSIDE
[2021-07-25 15:57] LABS: ALANINE AMINOTRANSFERASE 28 U/L (12-78); ALBUMIN 4.1 g/dL (3.4-5.0); ALCOHOL, BLOOD < 3 mg/dL (0-0); ALKALINE PHOSPHATASE 108 U/L (46-116); ASPARTATE AMINOTRANSFERASE 33 U/L (15-37); BILIRUBIN,DIRECT 0.1 mg/dL (0.0-0.2); BILIRUBIN,TOTAL 0.5 mg/dL (0.2-1.0)
[2021-07-25 16:27] LABS: ACETAMINOPHEN 0 ug/ml (10-30)
--- NOTE | 2021-07-25 17:20 | NUR ---
DINNER TRAY PROVIDED. TOLERATED WELL
[2021-07-25 18:12] VITALS: BP 154/90
--- NOTE | 2021-07-26 01:02 | NUR ---
PT NO LONGER WANTS TO STAY IN THE HOSPITAL. DENIES SI AND HI. AWARE. PT DISCHARGED.
== END 2021-07-26 00:31 | disposition home or self-care (01) ==
LOC: ER 10:15
DX: F19.10 Other psychoactive substance abuse, uncomplicated (principal); I10 Essential (primary) hypertension; Z87.39 Personal history of other diseases of the musculoskeletal system and connective tissue; Z88.8 Allergy status to other drugs, medicaments and biological substances
CPT/HCPCS: 36415; 80048-TC; 80076-TC; 85025-TC; G0480

== ENCOUNTER 2022-05-23 20:59 | Inpatient (IN) | payer OTHER ==
[~2022-05-23] VITALS: Ht 167.6 cm; Wt 62.8 kg
--- NOTE | 2022-05-23 21:00 | NUR ---
TO ER BED 14. [address] [place] [address] C/O WEAKNESS X 3DAYS. PT IS ALERT AND ORIENTED. RR EVEN AND NOB LABORED. CONNECTED TO MONITOR
[2022-05-23] MEDS ORDERED: ONDANSETRON HCL/PF 4 MG/2 ML VIAL IVP ONE (21:30)
[2022-05-23] MEDS ORDERED: IV NS 0.9% 1,000 ML BAG IV ONE (21:30)
[2022-05-23] MEDS ORDERED: ONDANSETRON HCL/PF 4 MG/2 ML VIAL ONE (21:33)
--- NOTE | 2022-05-23 21:41 | NUR ---
COVID SWAB AND INFLUENZA SWAB COLLECTED
--- NOTE | 2022-05-23 22:03 | NUR ---
XRAY AT BEDSIDE
[2022-05-23 22:12] LABS: BASOPHILS % (AUTO) 0.4 % (0.0-2.0); EOSINOPHILS % (AUTO) 1.6 % (0.0-6.0); HEMATOCRIT 42 % (39-51); HEMOGLOBIN 13.7 g/dL (13.5-17.5); LYMPHOCYTES # (AUTO) 1.1 K/uL (0.8-4.8); LYMPHOCYTES % (AUTO) 12.2 % (20.0-44.0); MEAN CORPUSCULAR HGB CONC 33 g/dl (31.0-36.0); MEAN CORPUSCULAR VOLUME 100 fL (80-96); MONOCYTES # (AUTO) 0.9 K/uL (0.1-1.30); MONOCYTES % (AUTO) 9.7 % (2.0-12.0); NEUTROPHILS # (AUTO) 6.9 K/uL (1.8-8.9); NEUTROPHILS % (AUTO) 76.1 % (43.0-81.0); PLATELET COUNT (AUTO) 317 K/uL (150-450); RED BLOOD CELL COUNT(AUTO) 4.16 MIL/uL (4.5-6.0); WHITE BLOOD COUNT (AUTO) 9.1 K/uL (4.3-11.0)
[2022-05-23 22:58] LABS: ALANINE AMINOTRANSFERASE 37 U/L (12-78); ALBUMIN 3.5 g/dL (3.4-5.0); ALKALINE PHOSPHATASE 101 U/L (46-116); ASPARTATE AMINOTRANSFERASE 44 U/L (15-37); BILIRUBIN,DIRECT 0.1 mg/dL (0.0-0.2); BILIRUBIN,TOTAL 0.3 mg/dL (0.2-1.0); CALCIUM, SERUM 9.3 mg/dL (8.5-10.1); CARBON DIOXIDE 29 mmol/L (21-32); CHLORIDE 102 mmol/L (98-107); CREATININE 1.7 mg/dL (0.6-1.3); GLUCOSE 221 mg/dL (74-106); POTASSIUM 3.8 mmol/L (3.5-5.1); SODIUM SERUM 139 mmol/L (136-145); TOTAL PROTEIN, SERUM 7.2 g/dL (6.4-8.2); UREA NITROGEN, BLOOD 33 mg/dL (7-18)
--- NOTE | 2022-05-23 23:01 | NUR ---
LACTIC 2.8, AWARE
[2022-05-23] MEDS ORDERED: IV NS 0.9% 1,000 ML IV PRN (23:30)
[2022-05-23] MEDS ORDERED: MAGNESIUM HYDROXIDE 30 ML UDC PO PRN (23:30)
[2022-05-23] MEDS ORDERED: ACETAMINOPHEN 325 MG TABLET PO PRN (23:30)
[2022-05-23] MEDS ORDERED: Z GUARD REMEDY 4 OZ OINT TP PRN (23:30)
[2022-05-23] MEDS ORDERED: TEMAZEPAM 15 MG CAPSULE PO PRN (23:30)
[2022-05-23] MEDS ORDERED: MAG HYDROX/AL HYDROX/SIMETH 30 ML UDC PO PRN (23:30)
[2022-05-23] MEDS ORDERED: ONDANSETRON HCL/PF 4 MG/2 ML VIAL IVP PRN (23:30)
[2022-05-23] MEDS ORDERED: HYDROCODONE/APAP 5/325MG TABLET PO PRN (23:30)
[2022-05-24] MEDS ORDERED: IV NS 0.9% 1,000 ML BAG IV ONE (00:30)
[2022-05-24] MEDS ORDERED: CEFTRIAXONE 1 G in IV D5W 50 ML IV ONE (01:12)
[2022-05-24 01:45] VITALS: BP 125/70
[2022-05-24] MEDS ORDERED: AZITHROMYCIN 500 MG in IV D5W 250 ML IV ONE (01:45)
--- NOTE | 2022-05-24 01:58 | NUR ---
PT TRANSPORTED TO UNIT [facility] WITH WITH EMT AT BEDSIDE. REPORT WAS GIVEN 3 WEST NURSE.
[2022-05-24 02:00] VITALS: BP 125/70
--- NOTE | 2022-05-24 02:00 | NUR ---
ms césar initial notes Received pt from ER via aleyda accompanied by diamond powder technician. He's awake and alert , no signs of any distress or any discomfort noted. Pt aware where he at, orient him how to use the call light system.Skin warm and dry to touch, a lot of tattoed noted, skin abrasion /skin tear both knees and right upper thigh. Pt able to provide information and able to verbalized his need. kept him warm and comfortable at all times. Bed in low and lock in position with side rails x3 up.place call light at reach.
[2022-05-24] MEDS ORDERED: CEFTRIAXONE 1 G VIAL ONE (03:15)
[2022-05-24] MEDS ORDERED: AZITHROMYCIN 500 MG VIAL ONE (04:32)
--- NOTE | 2022-05-24 04:46 | NUR ---
RN notes Received abx azitromycin from ISRA Ulrich primary nurse. administered abx as ordered. Will continue to monitor.
[2022-05-24] MEDS: HYDROCODONE/APAP 10/325MG TABLET PO PRN (05:12)
--- NOTE | 2022-05-24 05:12 | NUR ---
ms safety relief valve technician notes pt woke up and saying that he has generalized pain per another nurse 11/22 , Durant 10mg po given as ordered. seen patient eating his sandwich and drinking juice at this time. Zithromax IVPB still infusing, no signs of any adverse reaction noted. will continue monitoring. safety precaution applied for safety.
--- NOTE | 2022-05-24 05:30 | NUR ---
ms move coordinator notes pt s heard screaming and saying bad words and asking for something for his pain even though i already gave the norco tablet. offered warm or cold compress but pt refused and instead he screaming more and asking for doctor to call. I talked to him that i will notified his doctor to let him know, but he's not listening instead saying bad words "call the "P" DOCTOR and even saying bad words to me. Text Dr Null to let him know what's going on to the patient.
[2022-05-24] MEDS: LORAZEPAM INJ 2 MG/ML VIAL IV PRN (06:07)
--- NOTE | 2022-05-24 06:07 | NUR ---
ms césar notes Checked patient and talked to him that i got ordered. ativan 1 mg IVP given by another nurse as ordered. no signs of any acute distress noted. will continue monitoring.
--- NOTE | 2022-05-24 07:07 | NUR ---
MS PANTOGRAPH WATCHER CLOSING NOTES PT RESTING NOW WITH EYES CLOSED BUT AROUSE EASILY . HE SAID WHAT DID YOU GAVE IT TO ME THEN SAID " THANK YOU". BREATHING EVEN AND NON-LABORED NOT IN ANY ACUTE DISTRESS NOTED. IVF STILL INFUSING. KEPT HIM WARM AND COMFORTABLE AT ALL TIMES.BED IN LOW AND LOCK IN POSITION WITH SIDE RAILS X2 UP AND BED ALARM SET FOR PT SAFETY. WILL CONTINUE MONITORING. PLACE CALL LIGHT AT REACH.
[2022-05-24] MEDS: PANTOPRAZOLE 40 MG TABLET.DR PO SCH (07:30)
--- NOTE | 2022-05-24 07:39 | NUR ---
ms rn receive patient sleeping, not in any for of distress, respirations even and unlabored,no sob noted, oriented x3, very non compliant patient, refused to continue iv antibiotics. will monitor patient
[2022-05-24 08:00] VITALS: BP 128/69
--- NOTE | 2022-05-24 09:10 | NUR ---
SW Consult: SW consult requested for patient possible homelessness. Patient was brought in due to weakness. Patient presents alert and oriented x3 (self,place,situation). Patient appeared to be restless and drowsy. He was unable to have a proper conversation due to feeling weak. He stated that he was brought to the hospital because he has been feeling weak. He reported that he is currently homeless and has been living on the streets for years, he was unable to identify for how many years. He stated that recently he was residing at [facility] in [place], [place] and he would want to return back there upon dc. He did deny suicidal and homicidal ideation. Patient denies visual/auditory hallucinations. Patient's speech was unclear and pt was mumbling it was difficult for this proposal writer to understand. Patient was unable to give further information about his identification and support system. SW assessed for substance abuse and pt expressed "maybe" he was unable to give a clear answer. SW offered pt resources and pt was accepting of shelters and substance abuse referrals. DC PLAN: Pt would want to return back to [facility] in [place]. Address found: [address] [place] [address]; ([phone]). Resources Given: Substance Abuse resources provided included: [facility] Substance Abuse Self-Helpline ([facility]) ; CRI -HELP [address] [facility]. [place] [address] ; [facility] [address] [facility] [address] ; [facility] Rehabilitation Program [address] [facility] [address] ; [facility] [address] [facility] [address] ; [facility] [address] [facility] [address] ; [facility] [address] [facility] [address] ; [facility] Substance Abuse Helpline([facility])-[facility] ; [facility] Family Counseling ; [facility] [place]; [facility] [place]; [facility] [place]; [facility] Jayjay Segundo; [facility]; [facility]; [facility]; [facility], [facility]. [place]; Alcoholics Anonymous -SFV; Sd-Chco-Zbptllk ; Marijuana Anonymous -SFV; Narcotics Anonymous www.na.org; Shelters: [facility] Provider: [facility] [place] Address: [address] [place] [address] Jesus Hernandez. [place], [address] # of Beds: 47 Population Served: [facility] 6 | [facility] Provider: [facility] at Last Address: [facility] [address], [address] # of Beds: 66 Population Served: [facility] Skipo Fate Provider: First to Serve Address: [address] [facility], [address] # of Beds: 56 Population Served: [facility] [place] Provider: [facility]/Ms. Ley House Address: [address] [facility], [address] # of Beds: 49 Population Served: [facility] 8 | [facility] Provider: First to Serve Address: [address] [facility], [address] # of Beds: 37 Population Served: [facility] Hygiene: [facility]: [address] [address]. [place] ; [facility] [address] [facility] ; [place] [address] KemalJay[address] . Food Resources: [place] [facility] at [facility] [address] [place]; Meet Each Need with Dignity ([facility]) [address] [address] Lopeztri[address] [facility]; [facility] [address] [facility]; [facility][Note 2] [address] [place] [address] [place]. Mental Health resources provided: [facility] [address] [place], [place] [phone] ; [facility] [address] [facility] [address], [place], [place] [phone] ; [facility] [address] [place], [place] [phone] ; [facility] [address] [place], [place] [phone] Healthcare Clinics: [facility] [address] [facility], [address] [place]. [place] ; [facility] [address] [facility] [address] [place] [address]; [facility] [place] [address] [facility]. [place] [phone] Counseling--Outpatient [facility] [address], [address] [place], [place] [address] (Specializes in in-depth psychotherapy for emotional distress: anxiety, depression, interpersonal conflicts, life transitions, childhood abuse) [facility] [address] [place] [address] (Assist with solving problem marital difficulties, separation & divorce, aging parents, & grief, chronic & terminal illness) [facility] [address] [place] [address] (Deal with loss & grief, anxiety, marital difficulties) Homebound/Mental Health Services [address] [place], [place] [phone] (Provide in-home mental services to people who are incapable of leaving their homes) [facility]eds of the Elderly Senior Service/Resource Center [address] [place] [address] [facility] [address] [place] [address] PSYCHIATRIC OUTPATIENT SERVICES [facility] Partial Hospitalization and Intensive Outpatient Program (Managed Care and [place] Only)[address] [address] [facility] [phone] [facility] Partial Hospitalization and Outpatient Nmyikmw[address] [place], [place] [phone] [facility] [place] Lpm[address] [place], [place] [phone] [facility] Partial Hospitalization and Outpatient Fqmrmtd[address] [facility] Jayjay SegundoKALAUPAPA, [phone]
--- NOTE | 2022-05-24 09:10 | NUR ---
ms rn patient awake, throwing things , refused atb iv, asking for food, security called due to shouting,will monitor patient.
--- NOTE | 2022-05-24 12:00 | NUR ---
ms rn patient refused lab draw today, will notify .
[2022-05-24 16:00] VITALS: BP 132/64
--- NOTE | 2022-05-24 17:00 | NUR ---
ms rn still waiting for adriana causey to see patient.patient sleeping.
--- NOTE | 2022-05-24 18:44 | NUR ---
ms delma called security, patient is throwing out object.
--- NOTE | 2022-05-24 19:15 | NUR ---
MS ISRA INITIAL NOTES RECEIVED REPORT FROM AM NURSE MARLENE AND SEEN PATIENT IN BED RESTING WITH EYES CLOSED BREATHING EVEN AND NON-LABORED NOT IN ANY ACUTE DISTRESS NOTED. PER AM NURSE PATIENT SO AGITATED WHEN HE WOKE UP TROWING THE PLATE COVER , URINATING ON THE FLOOR EVEN THOUGH YOU TOLD HIM TO USED THE URINAL. HE REFUSED THE IVF TO BE INFUSED AND REFUSING THE BLOOD DRAW WELL, BUT PATIENT ATE WELL NO ASPIRATION NOTED. KEPT HIM WARM AND COMFORTABLE AT ALL TIMES. BED IN LOW AND LOCK IN POSITION WITH SIDE RAILS X2 UP AND BED ALARM SET FOR SAFETY. WILL CONTINUE MONITORING. PLACE CALL LIGHT AT REACH.
[2022-05-24 20:10] VITALS: BP 152/76
[2022-05-25] MEDS: LORAZEPAM INJ 2 MG/ML VIAL IV PRN (03:29)
--- NOTE | 2022-05-25 03:29 | NUR ---
RN notes Pt is anxious and agitated easily. administered ativan 1 mg/iv/prn as ordered. safety precautions is maintained. Primary nurse ISRA Odell is aware and informed. will continue to monitor.
--- NOTE | 2022-05-25 07:00 | NUR ---
MS RN OPENING NOTES RECEIVED PT SLEEPING COMFORTABLY IN BED BUT EASILY AROUSABLE ON VOICE COMMANDS. BREATHING EVEN AND UNLABORED. NOT IN ANY ACUTE DISTRESS NOTED. BED IN LOW AND LOCK IN POSITION WITH SIDE RAILS X2 UP . BED ALARM ACTIVATED. PLACE CALL LIGHT AT REACH. WILL CONTINUE TO MONITOR
--- NOTE | 2022-05-25 07:25 | NUR ---
MS PULP DRIER CLOSING NOTES PT SLEEPING COMFORTABLY IN BED AFTER ATIVAN GIVEN EARLIER. BREATHING EVEN AND NON-LABORED. NOT IN ANY ACUTE DISTRESS NOTED. KEPT HIM WARM AND COMFORTABLE AT ALL TIMES. BED IN LOW AND LOCK IN POSITION WITH SIDE RAILS X2 UP . BED ALARM SET FOR SAFETY. ENDORSE TO AM NURSE FOR CONTINUITY OF CARE, PLACE CALL LIGHT AT REACH.
[2022-05-25] MEDS: PANTOPRAZOLE 40 MG TABLET.DR PO SCH (07:33)
[2022-05-25 08:00] VITALS: BP 130/74
--- NOTE | 2022-05-25 10:40 | NUR ---
DISCHARGE NOTES (AMA) PT SUDDENLY BECAME AGGRESSIVE AND ASKING FOR DILAUDID MED WHICH WASN'T PRESCRIBED. ATIVAN PRN WAS GIVEN TO MANAGE ANXIETY. LATER, NORCO ALSO GIVEN PRESCRIBED FOR PAIN. AFTER AWHILE, PATIENT STILL ASKING FOR DILAUDID AND DECIDED TO LEAVE THE HOSPITAL AGAINST MEDICAL ADVICE. SECURITY WAS CALLED FOR ASSISTANCE WHEN THE PATIENT STARTED TO CURSE ALL PERSONNEL IN SIGHT. PATIENT WAS UNCOOPERATIVE HOWEVER SIGNED THE AMA FORM AND LEAVE THE HOSPITAL WITH SECURITY PERSONNEL. CHARGE NURSE AWARE OF THE INCIDENT.
[2022-05-25] MEDS: HYDROCODONE/APAP 10/325MG TABLET PO PRN ×2 (10:52→12:25)
== END 2022-05-25 11:00 | disposition left against medical advice (07) | DRG 640 ==
LOC: ER 21:05 → TELE 05-24 00:52 → MED 05-24 01:41
PROVIDERS: ADMIT Nurse Practitioner Acute Care; ATTEND Nurse Practitioner Acute Care
DX: E86.0 Dehydration (principal); N17.0 Acute kidney failure with tubular necrosis; E44.1 Mild protein-calorie malnutrition; E87.20 Acidosis, unspecified; Z20.822 Contact with and (suspected) exposure to COVID-19; I10 Essential (primary) hypertension; F19.10 Other psychoactive substance abuse, uncomplicated; F15.10 Other stimulant abuse, uncomplicated; F10.10 Alcohol abuse, uncomplicated; Y90.9 Presence of alcohol in blood, level not specified; Z86.19 Personal history of other infectious and parasitic diseases; Z88.8 Allergy status to other drugs, medicaments and biological substances; Z79.899 Other long term (current) drug therapy; R29.6 Repeated falls; Z53.29 Procedure and treatment not carried out because of patient's decision for other reasons; Z59.00 Homelessness unspecified; F17.210 Nicotine dependence, cigarettes, uncomplicated; F41.9 Anxiety disorder, unspecified; E11.65 Type 2 diabetes mellitus with hyperglycemia
CPT/HCPCS: 36415; 71045-TC; 76770-TC; 80048-TC; 80076-TC; 83605-TC; 84484-TC; 85025-TC; 87040-TC; 87081-TC; 97530-TC; C9803; G0378; G0480; J0456; J0696; J2060; J2405; J7030; J7060

== ENCOUNTER 2023-05-09 16:28 | Emergency (ER) | payer BC, MEDICAID ==
[~2023-05-09] VITALS: Ht 165.1 cm; Wt 70.3 kg
[2023-05-09 17:14] VITALS: BP 127/74; TEMP 98.3; O2SAT 99
[2023-05-09] MEDS ORDERED: CEPH500C2 PO (17:41)
[2023-05-09] MEDS ORDERED: ACETAMINOPHEN ES 500 MG TABLET ONE (17:58)
[2023-05-09] MEDS: ACETAMINOPHEN ES 500 MG TABLET PO ONE (18:02)
== END 2023-05-09 18:50 | disposition home or self-care (01) ==
LOC: ER 16:28
DX: L03.116 Cellulitis of left lower limb (principal); I10 Essential (primary) hypertension; Z88.8 Allergy status to other drugs, medicaments and biological substances

== ENCOUNTER 2023-07-16 17:36 | Emergency (ER) | payer BC, MEDICAID ==
[~2023-07-16] VITALS: Ht 170.2 cm; Wt 73.0 kg
[~2023-07-16 17:36] MED LIST changes: +CEPH500C2 PO
[2023-07-16 17:47] VITALS: TEMP 98.2
[2023-07-16] MEDS: IV NS 0.9% 1,000 ML BAG IV ONE ×2 (18:00→21:11)
[2023-07-16 19:32] LABS: BASOPHILS # (AUTO) 0.1 K/uL (0.0-0.2); BASOPHILS % (AUTO) 0.2 % (0.0-2.0); EOSINOPHILS # (AUTO) 0.2 K/uL (0.0-0.7); EOSINOPHILS % (AUTO) 1.1 % (0.0-6.0); HEMATOCRIT 41 % (39-51); HEMOGLOBIN 13.1 g/dL (13.5-17.5); LYMPHOCYTES # (AUTO) 1.5 K/uL (0.8-4.8); LYMPHOCYTES % (AUTO) 6.8 % (20.0-44.0); MEAN CORPUSCULAR HEMOGLOBIN 32 PG (26.0-33.0); MEAN CORPUSCULAR HGB CONC 32 g/dl (31.0-36.0); MEAN CORPUSCULAR VOLUME 100 fL (80-96); MONOCYTES # (AUTO) 1.4 K/uL (0.1-1.30); MONOCYTES % (AUTO) 6.5 % (2.0-12.0); NEUTROPHILS # (AUTO) 18.7 K/uL (1.8-8.9); NEUTROPHILS % (AUTO) 85.4 % (43.0-81.0); PLATELET COUNT (AUTO) 307 K/uL (150-450); RED BLOOD CELL COUNT(AUTO) 4.08 MIL/uL (4.5-6.0); RED CELL DISTRIBUTION WIDTH 13.7 % (11.5-15.0); WHITE BLOOD COUNT (AUTO) 21.9 K/uL (4.3-11.0)
[2023-07-16 19:41] LABS: CREATININE 1.4 mg/dL (0.6-1.3); POTASSIUM 3.9 mmol/L (3.5-5.1)
[2023-07-16 19:58] LABS: ALBUMIN 3.2 g/dL (3.4-5.0); BILIRUBIN,DIRECT 0.2 mg/dL (0.0-0.2); BILIRUBIN,TOTAL 0.7 mg/dL (0.2-1.0); TOTAL PROTEIN, SERUM 6.6 g/dL (6.4-8.2)
[2023-07-16 20:29] LABS: APPEARANCE,URINE Clear (CLEAR); BILIRUBIN,URINE Negative (NEGATIVE); BLOOD, URINE Negative Ery/uL (NEGATIVE); COLOR,URINE YELLOW (YELLOW); KETONES,URINE Negative (NEGATIVE); LEUKOCYTE ESTERASE ,URINE Negative (NEGATIVE); NITRITE, URINE Negative (NEGATIVE); PH,URINE 5.5 (5.0-8.0); PROTEIN,URINE Negative (NEGATIVE); UGLUCOSE Negative (NEGATIVE); UROBILINOGEN,URINE 0.2 EU/dL (0.2)
[2023-07-16 21:56] VITALS: BP 118/78; O2SAT 98
== END 2023-07-16 21:56 | disposition home or self-care (01) ==
LOC: ER 17:52
DX: D72.829 Elevated white blood cell count, unspecified (principal); E86.0 Dehydration; R11.10 Vomiting, unspecified; R19.7 Diarrhea, unspecified; R53.1 Weakness; I10 Essential (primary) hypertension; F10.11 Alcohol abuse, in remission
CPT/HCPCS: 99285; 96360; 71045; 96361 ×2; 93005; 85025; 80048; 83605; 83690; 80076; 81003; 36415; 84484; 36410; J7030 ×2

== ENCOUNTER 2023-10-10 07:34 | Emergency (ER) | payer MEDICAID, OTHER ==
[~2023-10-10] VITALS: Ht 167.6 cm; Wt 70.3 kg
[2023-10-10 08:17] VITALS: BP 145/77; TEMP 98.6; O2SAT 100
[2023-10-10] MEDS: LIDOCAINE 5% (PATCH) 1 EA PATCH TP STA (08:36)
[2023-10-10] MEDS ORDERED: KETOROLAC TROMETHAMINE 15 MG/ML VIAL ONE (08:38)
[2023-10-10] MEDS ORDERED: LIDOCAINE 5% (PATCH) 1 EA PATCH TP ONE (08:39)
[2023-10-10] MEDS: KETOROLAC TROMETHAMINE 15 MG/ML VIAL IM ONE (08:43)
[2023-10-10] MEDS ORDERED: CYCL5TAB PO (08:46)
[2023-10-10] MEDS ORDERED: LIDO30AD10 TP (08:46)
[2023-10-10] MEDS ORDERED: IBUP-1955 PO (08:46)
== END 2023-10-10 09:12 | disposition home or self-care (01) ==
LOC: ER 07:39
DX: S16.1XXA Strain of muscle, fascia and tendon at neck level, initial encounter (principal); I10 Essential (primary) hypertension; F19.10 Other psychoactive substance abuse, uncomplicated; J02.9 Acute pharyngitis, unspecified; Z88.8 Allergy status to other drugs, medicaments and biological substances; X50.9XXA Other and unspecified overexertion or strenuous movements or postures, initial encounter; Y93.89 Activity, other specified; Y92.89 Other specified places as the place of occurrence of the external cause; Y99.8 Other external cause status
CPT/HCPCS: 99283; 96372; J1885

== ENCOUNTER 2023-10-12 18:12 | Emergency (ER) | payer OTHER, MEDICAID ==
[~2023-10-12] VITALS: Ht 167.6 cm; Wt 70.3 kg
[~2023-10-12 18:12] MED LIST changes: +CYCL5TAB PO; +IBUP-1955 PO; +LIDO30AD10 TP
[2023-10-12] MEDS ORDERED: LORAZEPAM 1 MG TABLET ONE (19:03)
[2023-10-12] MEDS: LORAZEPAM 1 MG TABLET PO ONE (19:06)
[2023-10-12 20:53] VITALS: BP 135/71; TEMP 98.4; O2SAT 100
== END 2023-10-12 20:53 | disposition home or self-care (01) ==
LOC: EDUNIT# 18:12 → ER 18:21
DX: F41.0 Panic disorder [episodic paroxysmal anxiety] (principal); I10 Essential (primary) hypertension; Z79.899 Other long term (current) drug therapy; Z88.1 Allergy status to other antibiotic agents

== ENCOUNTER 2023-10-20 08:12 | Emergency (ER) | payer OTHER, MEDICAID ==
[~2023-10-20] VITALS: Ht 167.6 cm; Wt 68.5 kg
[2023-10-20] MEDS ORDERED: HYDROCODONE/APAP 5/325MG TABLET ONE (08:40)
[2023-10-20] MEDS: HYDROCODONE/APAP 5/325MG TABLET PO ONE (08:41)
[2023-10-20] MEDS ORDERED: CEPH500C2 PO (09:32)
[2023-10-20] MEDS ORDERED: IBUP-1953 PO (09:32)
[2023-10-20 10:02] VITALS: BP 118/70; TEMP 98.4; O2SAT 100
== END 2023-10-20 10:03 | disposition home or self-care (01) ==
LOC: ER 08:12
DX: L03.114 Cellulitis of left upper limb (principal); M25.522 Pain in left elbow; I10 Essential (primary) hypertension; F19.10 Other psychoactive substance abuse, uncomplicated; Z88.8 Allergy status to other drugs, medicaments and biological substances; Z60.2 Problems related to living alone; W01.0XXA Fall on same level from slipping, tripping and stumbling without subsequent striking against object, initial encounter; Y93.89 Activity, other specified; Y92.89 Other specified places as the place of occurrence of the external cause; Y99.8 Other external cause status
CPT/HCPCS: 73080-TC; 73090-TC

== ENCOUNTER 2023-11-27 06:30 | Emergency (ER) | payer BC, MEDICAID ==
[~2023-11-27] VITALS: Ht 175.3 cm; Wt 75.7 kg
[~2023-11-27 06:30] MED LIST changes: +IBUP-1953 PO
[2023-11-27 06:37] VITALS: BP 145/68; TEMP 98.1; O2SAT 98
[2023-11-27] MEDS ORDERED: CEPH500C2 PO (07:01)
[2023-11-27] MEDS ORDERED: CEPHALEXIN MONOHYDRATE 500 MG CAPSULE PO ONE (07:06)
[2023-11-27] MEDS: CEPHALEXIN MONOHYDRATE 500 MG CAPSULE PO ONE (07:09)
== END 2023-11-27 07:19 | disposition home or self-care (01) ==
LOC: ER 06:41
DX: L03.113 Cellulitis of right upper limb (principal); I10 Essential (primary) hypertension; Z79.1 Long term (current) use of non-steroidal anti-inflammatories (NSAID); Z86.19 Personal history of other infectious and parasitic diseases; Z79.899 Other long term (current) drug therapy; Z60.2 Problems related to living alone; Z88.8 Allergy status to other drugs, medicaments and biological substances

== ENCOUNTER 2024-01-03 02:02 | Emergency (ER) | payer BC, MEDICAID | END 2024-01-03 03:10 | disposition left against medical advice (07) | LOC: ER 02:20 | DX: M54.2 Cervicalgia (principal); Z53.21 Procedure and treatment not carried out due to patient leaving prior to being seen by health care provider ==

== ENCOUNTER 2024-03-25 19:00 | Emergency (ER) | payer BC, MEDICAID ==
[~2024-03-25] VITALS: Ht 165.1 cm; Wt 70.3 kg
[2024-03-25 20:40] VITALS: BP 155/85; TEMP 98.5
[2024-03-25] MEDS ORDERED: GABA-532 PO (20:48)
[2024-03-25] MEDS ORDERED: CYCL15CA23 PO (20:48)
[2024-03-25 20:53] VITALS: O2SAT 99
== END 2024-03-25 20:58 | disposition home or self-care (01) ==
LOC: ER 20:57
DX: M54.2 Cervicalgia (principal); I10 Essential (primary) hypertension; Z79.899 Other long term (current) drug therapy; Z86.19 Personal history of other infectious and parasitic diseases; Z60.2 Problems related to living alone

== ENCOUNTER 2024-04-17 08:07 | Emergency (ER) | payer BC, MEDICAID ==
[~2024-04-17] VITALS: Ht 170.2 cm; Wt 77.1 kg
[~2024-04-17 08:07] MED LIST changes: +CYCL15CA23 PO; +GABA-532 PO
[2024-04-17 08:32] VITALS: BP 152/78; TEMP 97.9; O2SAT 99
[2024-04-17] MEDS ORDERED: LORAZEPAM 1 MG TABLET ONE (08:55)
[2024-04-17] MEDS: LORAZEPAM 1 MG TABLET PO ONE (09:01)
== END 2024-04-17 09:04 | disposition home or self-care (01) ==
LOC: ER 08:16
DX: F41.9 Anxiety disorder, unspecified (principal); I10 Essential (primary) hypertension; Z79.899 Other long term (current) drug therapy; Z86.19 Personal history of other infectious and parasitic diseases; Z60.2 Problems related to living alone

== ENCOUNTER 2025-01-17 13:27 | Emergency (ER) | payer MEDICAID ==
[~2025-01-17] VITALS: Ht 170.2 cm; Wt 72.6 kg
[2025-01-17 14:05] LABS: PLATELET COUNT (AUTO) 179 K/uL (150-450); RED BLOOD CELL COUNT(AUTO) 4.23 MIL/uL (4.5-6.0); RED CELL DISTRIBUTION WIDTH 13.1 % (11.5-15.0); WHITE BLOOD COUNT (AUTO) 13.6 K/uL (4.3-11.0)
[2025-01-17 14:11] LABS: CALCIUM, SERUM 8.8 mg/dL (8.5-10.1); CREATININE 1.1 mg/dL (0.6-1.3); SODIUM SERUM 136.0 mmol/L (136-145); UREA NITROGEN, BLOOD 22.0 mg/dL (7-18)
[2025-01-17] MEDS ORDERED: KETOROLAC TROMETHAMINE 15 MG/ML VIAL ONE (14:27)
[2025-01-17] MEDS: KETOROLAC TROMETHAMINE 15 MG/ML VIAL IV ONE (14:30)
[2025-01-17] MEDS ORDERED: KETO10TA2 PO (15:19)
[2025-01-17] MEDS ORDERED: CYCL5TAB PO (15:19)
[2025-01-17 15:36] VITALS: BP 155/81; TEMP 97.9; O2SAT 98
[2025-01-18] MEDS ORDERED: ALPR1TAB7 PO (10:48)
[2025-01-18] MEDS ORDERED: GABA-532 PO (10:48)
[2025-01-18] MEDS ORDERED: HYDR-3980 PO (10:48)
== END 2025-01-17 15:37 | disposition home or self-care (01) ==
LOC: ER 13:27
DX: T14.8XXA Other injury of unspecified body region, initial encounter (principal); I10 Essential (primary) hypertension; F19.10 Other psychoactive substance abuse, uncomplicated; R07.9 Chest pain, unspecified; Z86.79 Personal history of other diseases of the circulatory system; Z87.19 Personal history of other diseases of the digestive system; Z87.39 Personal history of other diseases of the musculoskeletal system and connective tissue; Z86.59 Personal history of other mental and behavioral disorders; Z88.8 Allergy status to other drugs, medicaments and biological substances; Z60.2 Problems related to living alone; Z79.899 Other long term (current) drug therapy; Z86.19 Personal history of other infectious and parasitic diseases; W01.0XXA Fall on same level from slipping, tripping and stumbling without subsequent striking against object, initial encounter; Y93.89 Activity, other specified; Y92.89 Other specified places as the place of occurrence of the external cause; Y99.8 Other external cause status
CPT/HCPCS: 99284; 96374; 71045; 72170; 85025; 80048; 36415; J1885

== ENCOUNTER 2025-01-18 06:16 | Inpatient (IN) | payer MEDICAID ==
[2025-01-18] VITALS (10 sets, daily range): BP systolic 117–138; BP diastolic 58–66; TEMP 97.6–98.8; O2SAT 91–99
[~2025-01-18] VITALS: Ht 165.1 cm; Wt 71.7 kg
[~2025-01-18 06:16] MED LIST changes: +KETO10TA2 PO
[2025-01-18] MEDS: IPRATROPIUM NEB FS 0.5 MG/2.5 ML AMPUL.NEB NEB ONE (06:35)
[2025-01-18] MEDS: ALBUTEROL FS 2.5 MG/3 ML VIAL.NEB CONTNEB ONE (06:35)
[2025-01-18] MEDS ORDERED: ALBUTEROL FS 2.5 MG/3 ML VIAL.NEB ONE (06:37)
[2025-01-18] MEDS ORDERED: IPRATROPIUM NEB FS 0.5 MG/2.5 ML AMPUL.NEB ONE (06:37)
[2025-01-18] MEDS ORDERED: dexaMETHasone SOD PHOSPHATE 1 ML ONE (06:41)
[2025-01-18] MEDS: dexaMETHasone SOD PHOSPHATE 10 MG/ML VIAL IV ONE (06:45)
[2025-01-18 07:04] LABS: PLATELET COUNT (AUTO) 205 K/uL (150-450); RED BLOOD CELL COUNT(AUTO) 4.29 MIL/uL (4.5-6.0); RED CELL DISTRIBUTION WIDTH 12.7 % (11.5-15.0); WHITE BLOOD COUNT (AUTO) 14.8 K/uL (4.3-11.0)
[2025-01-18 07:11] LABS: CALCIUM, SERUM 8.9 mg/dL (8.5-10.1); CREATININE 0.9 mg/dL (0.6-1.3); SODIUM SERUM 140 mmol/L (136-145); UREA NITROGEN, BLOOD 19 mg/dL (7-18)
[2025-01-18 07:17] LABS: LACTIC ACID 1.7 mmol/L (0.4-2.0)
[2025-01-18 07:18] LABS: ASPARTATE AMINOTRANSFERASE 114 U/L (15-37); TOTAL PROTEIN, SERUM 6.9 g/dL (6.4-8.2)
[2025-01-18 07:23] LABS: INR 1.0 (0.91-1.10)
[2025-01-18] MEDS ORDERED: CEFTRIAXONE 1GM BAG (ER ONLY) 50 ML IV ONE (07:33)
[2025-01-18] MEDS: CEFTRIAXONE 1GM BAG (ER ONLY) 1 GM/50 ML PIGGYBACK IV ONE (07:40)
[2025-01-18] MEDS: AZITHROMYCIN 500 MG in IV D5W 250 ML IV ONE (08:10)
[2025-01-18] MEDS ORDERED: LIDOCAINE 5% (PATCH) 1 EA PATCH TP PRN (08:30)
[2025-01-18] MEDS ORDERED: IBUPROFEN 600 MG TABLET PO PRN (08:30)
[2025-01-18] MEDS ORDERED: ACETAMINOPHEN 325 MG TABLET PO PRN (09:00)
[2025-01-18] MEDS ORDERED: MAG HYDROX/AL HYDROX/SIMETH 30 ML UDC PO PRN (09:00)
[2025-01-18] MEDS ORDERED: ONDANSETRON HCL/PF 4 MG/2 ML VIAL IVP PRN (09:00)
[2025-01-18] MEDS ORDERED: Z GUARD REMEDY 4 OZ OINT TP PRN (09:00)
[2025-01-18] MEDS ORDERED: MAGNESIUM HYDROXIDE 30 ML UDC PO PRN (09:00)
[2025-01-18] MEDS: LISINOPRIL (20MG) 20 MG TABLET PO SCH (10:01)
[2025-01-18] MEDS: GABAPENTIN 100 MG CAPSULE PO SCH ×2 (10:01→13:18)
[2025-01-18] MEDS: GABAPENTIN 400 MG CAPSULE PO SCH (10:01)
[2025-01-18] MEDS: CYCLOBENZAPRINE 10 MG TABLET PO SCH (10:01)
[2025-01-18] MEDS: ENOXAPARIN SODIUM 40 MG/0.4 ML DISP.SYRIN SQ SCH (10:08)
[2025-01-18] MEDS ORDERED: HYDR-3980 PO (10:48)
[2025-01-18] MEDS ORDERED: ALPR1TAB7 PO (10:48)
[2025-01-18] MEDS ORDERED: GABA-532 PO (10:48)
[2025-01-18] MEDS: ALPRAZOLAM 1 MG TABLET PO SCH (13:17)
[2025-01-18] MEDS: HYDROCODONE/APAP 10/325MG TABLET PO SCH (16:58)
[2025-01-18] MEDS: ALPRAZOLAM 0.25 MG TABLET PO ONE (21:55)
[2025-01-18] MEDS: AMITRIPTYLINE HCL 25 MG TABLET PO SCH (23:08)
[2025-01-19] VITALS (10 sets, daily range): BP systolic 100–133; BP diastolic 63–70; TEMP 97.3–98.3; O2SAT 93–99
[2025-01-19 07:28] LABS: PLATELET COUNT (AUTO) 206 K/uL (150-450); RED BLOOD CELL COUNT(AUTO) 4.05 MIL/uL (4.5-6.0); RED CELL DISTRIBUTION WIDTH 12.8 % (11.5-15.0); WHITE BLOOD COUNT (AUTO) 16.1 K/uL (4.3-11.0)
[2025-01-19 08:07] LABS: CALCIUM, SERUM 9.2 mg/dL (8.5-10.1); CREATININE 0.9 mg/dL (0.6-1.3); PHOSPHORUS 3.4 mg/dL (2.5-4.9); SODIUM SERUM 144.0 mmol/L (136-145); UREA NITROGEN, BLOOD 18.0 mg/dL (7-18)
[2025-01-19] MEDS: CEFTRIAXONE 1 G in IV D5W 50 ML IV SCH (09:42)
[2025-01-19] MEDS: IPRATROPIUM NEB FS 0.5 MG/2.5 ML AMPUL.NEB NEB SCH (09:46)
[2025-01-19] MEDS: ALBUTEROL HALF STRENGTH 1.25 MG/3 ML VIAL.NEB NEB SCH (09:46)
[2025-01-19] MEDS: dexaMETHasone SOD PHOSPHATE 4 MG/ML VIAL IV ONE (11:38)
[2025-01-19] MEDS: DOXYCYCLINE 100 MG in IV D5W 100 ML IV SCH (11:43)
[2025-01-20 01:41] VITALS: O2SAT 98
[2025-01-20 01:56] VITALS: O2SAT 99
[2025-01-20 09:00] VITALS: BP 103/62; TEMP 98.3; O2SAT 97
[2025-01-20 17:00] VITALS: BP 137/83; TEMP 98.1; O2SAT 97
[2025-01-20 19:57] VITALS: O2SAT 93
[2025-01-20 20:17] VITALS: O2SAT 99
[2025-01-20] MEDS: LORAZEPAM 0.5 MG TABLET PO ONE (23:34)
[2025-01-21] VITALS (11 sets, daily range): BP systolic 92–151; BP diastolic 45–84; TEMP 97.9–99.3; O2SAT 93–100
[2025-01-21 13:34] LABS: PLATELET COUNT (AUTO) 262 K/uL (150-450); RED BLOOD CELL COUNT(AUTO) 4.26 MIL/uL (4.5-6.0); RED CELL DISTRIBUTION WIDTH 12.7 % (11.5-15.0); WHITE BLOOD COUNT (AUTO) 12.0 K/uL (4.3-11.0)
[2025-01-21 13:38] LABS: CALCIUM, SERUM 9.3 mg/dL (8.5-10.1); CREATININE 0.7 mg/dL (0.6-1.3); PHOSPHORUS 3.8 mg/dL (2.5-4.9); SODIUM SERUM 142.0 mmol/L (136-145); UREA NITROGEN, BLOOD 18.0 mg/dL (7-18)
[2025-01-21 14:10] LABS: EOSINOPHILS % (MANUAL) 3 % (0-4); LYMPHOCYTES % (MANUAL) 22 % (16-48); MONOCYTES % (MANUAL) 11 % (0-11.0); NEUTROPHILS % (MANUAL) 64 (42-76); PLATELET ESTIMATE ADEQUATE
[2025-01-22] VITALS (11 sets, daily range): BP systolic 94–142; BP diastolic 59–73; TEMP 98.1–99; O2SAT 92–96
[2025-01-22] MEDS ORDERED: AMOX-430 PO (10:14)
[2025-01-22] MEDS ORDERED: DOXY-326 PO (10:14)
[2025-01-22] MEDS: ALPRAZOLAM 1 MG TABLET PO PRN (10:59)
[2025-01-22] MEDS: HYDROCODONE/APAP 10/325MG TABLET PO PRN (10:59)
[2025-01-22 20:32] LABS: PLATELET COUNT (AUTO) 310 K/uL (150-450); RED BLOOD CELL COUNT(AUTO) 4.05 MIL/uL (4.5-6.0); RED CELL DISTRIBUTION WIDTH 13.0 % (11.5-15.0); WHITE BLOOD COUNT (AUTO) 12.2 K/uL (4.3-11.0)
[2025-01-22 20:45] LABS: CALCIUM, SERUM 8.8 mg/dL (8.5-10.1); CREATININE 0.9 mg/dL (0.6-1.3); PHOSPHORUS 4.2 mg/dL (2.5-4.9); SODIUM SERUM 139.0 mmol/L (136-145); UREA NITROGEN, BLOOD 27.0 mg/dL (7-18)
[2025-01-22 21:29] LABS: BAND % (MANUAL) 1 % (0.0-5.0); EOSINOPHILS % (MANUAL) 1 % (0-4); LYMPHOCYTES % (MANUAL) 21 % (16-48); MONOCYTES % (MANUAL) 8 % (0-11.0); MYELOCYTES % 2 % (0-0); NEUTROPHILS % (MANUAL) 67 (42-76)
[2025-01-22 21:30] LABS: PLATELET ESTIMATE ADEQU
[2025-01-25 12:07] LABS: COCCIDIOIDES Abs, IgG,EIA 0.3 EIA Units (.); COCCIDIOIDES Abs, IgM,EIA 0.6 EIA Units (.)
== END 2025-01-22 21:18 | DRG 177 ==
LOC: ER 06:18 → TELE1 08:41 → MEDSG1 01-19 09:12
PROVIDERS: ADMIT Internal Medicine; ATTEND Nurse Practitioner Acute Care
DX: J85.0 Gangrene and necrosis of lung (principal); J15.9 Unspecified bacterial pneumonia; Z59.00 Homelessness unspecified; J20.8 Acute bronchitis due to other specified organisms; F32.9 Major depressive disorder, single episode, unspecified; F41.9 Anxiety disorder, unspecified; G62.9 Polyneuropathy, unspecified; E86.0 Dehydration; Z79.899 Other long term (current) drug therapy; Z20.822 Contact with and (suspected) exposure to COVID-19; F17.210 Nicotine dependence, cigarettes, uncomplicated; Z71.6 Tobacco abuse counseling; I10 Essential (primary) hypertension; J98.4 Other disorders of lung; S49.81XS Other specified injuries of right shoulder and upper arm, sequela; S49.82XS Other specified injuries of left shoulder and upper arm, sequela
CPT/HCPCS: 36415; 71045-TC; 71250-TC; 80048-TC; 80076-TC; 83605-TC; 83735-TC; 84100-TC; 84484-TC; 85025-TC; 85027-TC; 85730-TC; 87040-TC; 87081-TC; 93307-TC; 94799-TC; 97110-TC; 97116-TC; 97530-TC; 97535-TC; A4223; G0378; J0456; J0696; J1100; J1650; J3490; J7030; J7060

== ENCOUNTER 2025-02-07 23:12 | Emergency (ER) | payer MEDICAID ==
[~2025-02-07] VITALS: Ht 170.2 cm; Wt 65.8 kg
[~2025-02-07 23:12] MED LIST changes: +ALPR1TAB7 PO; -AMIT50TA17 PO; +AMOX-430 PO; -CEPH500C2 PO; -CYCL15CA23 PO; +DOXY-326 PO; -GABA-536 PO; +HYDR-3980 PO; -IBUP-1953 PO; -KETO10TA2 PO; -LIDO30AD10 TP
[2025-02-08] MEDS ORDERED: LEVOFLOXACIN (250MG) 250 MG TABLET ONE (00:26)
[2025-02-08] MEDS: LEVOFLOXACIN (250MG) 250 MG TABLET PO ONE (00:30)
[2025-02-08] MEDS ORDERED: LEVO750T46 PO (01:31)
[2025-02-08 02:30] VITALS: BP 156/78; TEMP 98; O2SAT 99
== END 2025-02-08 02:31 | disposition home or self-care (01) ==
LOC: ER 23:23
DX: J18.9 Pneumonia, unspecified organism (principal); I11.9 Hypertensive heart disease without heart failure; M19.90 Unspecified osteoarthritis, unspecified site; Z79.891 Long term (current) use of opiate analgesic; Z79.899 Other long term (current) drug therapy; Z86.19 Personal history of other infectious and parasitic diseases; Z20.822 Contact with and (suspected) exposure to COVID-19
CPT/HCPCS: 71045-TC